=== PATIENT | male | born 1985 | race Two or more races ===

== ENCOUNTER 2016-12-11 02:35 | Emergency (ER) | payer SELFPAY ==
[~2016-12-11] VITALS: Ht 167.6 cm; Wt 65.8 kg
[~2016-12-11 02:35] MED LIST: QUETIAPINE FUM100 MG ORAL
[2016-12-11 02:41] VITALS: BP 127/85
--- NOTE | 2016-12-11 03:50 | Emergency Room Report ---
History of Present Illness General Chief Complaint: Altered Level of Consciousness Source: Patient, Medical Record, EMS Present Illness HPI Is a 31-year-old male brought in by EMS for erratic behavior. He was wandering on the street talking to himself. Bystander car 911. He had on him paperwork from a mental health facility. He was discharged on December 07. He was diagnosed with depressive disorder. Patient answer question appropriately here. Denies any suicidal thought homicidal thought. No fever or chills. No nausea no vomiting. He is a little reluctant in answering questions. He has prescription for Seroquel, Wellbutrin, and Restoril. Allergies: Coded Allergies: No Known Allergies (Unverified , 12/11/16) Patient History Past Medical History: see triage record, old chart reviewed, psych hx Past Surgical History: other Family History: none Social History: other Immunizations: other Reviewed Nursing Documentation: PMH: Agreed, PSxH: Agreed Review of Systems ENT: Denies: sore throat Cardiovascular: Denies: chest pain, palpitations Gastrointestinal/Abdominal: Denies: diarrhea, nausea, vomiting Musculoskeletal: Denies: back problems Skin: Denies: rash Neurological: Denies: YATES, seizures All Other Systems: negative except mentioned in HPI Physical Exam Vital Signs Date Time Temp Pulse Resp B/P Pulse Ox O2 Delivery O2 Flow Rate FiO2 12/11/16 02:23 98.6 90 16 117/86 98 Room Air vitals normal Sp02 EP Interpretation: reviewed, normal General Appearance: alert/responsive, no apparent distress, non-toxic Head: normocephalic, atraumatic Eyes: PERRL, EOMI ENT: oropharynx normal Neck: supple/symm/no masses Respiratory: effort normal, no rhonchi, no wheezing Cardiovascular: no murmur, gallop, rub Gastrointestinal: non-tender, no mass, non-distended, no rebound/guarding, normal bowel sounds Musculoskeletal: gait & station normal Neurologic: oriented x3, sensory intact, motor strength/tone normal Psychiatric: other - Flat affect Skin: no rash, normal palpation Medical Decision Making Diagnostic Impression: Primary Impression: Depressive disorder, not elsewhere classified ER Course Patient presents with depressed affect. He probably has schizoaffective person schizophrenia. Stable otherwise. No suicidal thought homicidal thought. We' ll go home in the morning. Last Vital Signs Date Time Temp Pulse Resp B/P Pulse Ox O2 Delivery O2 Flow Rate FiO2 12/11/16 02:41 98.6 74 16 127/85 94 Room Air Status: improved Disposition: HOME, SELF-CARE Condition: Stable Referrals: NOT CHOSEN IPA/,REFERRING (PCP) AMARA BOYER M.D. December 11, 2016 03:50
[2016-12-11 05:41] VITALS: BP 127/85
== END 2016-12-11 05:42 | disposition home or self-care (01) ==
LOC: EDBD 02:35 → EMR 02:58
DX: F32.9 Major depressive disorder, single episode, unspecified (principal)
CPT/HCPCS: 99283